=== PATIENT | female | born 1955 | race Caucasian/White ===

== ENCOUNTER → 2017-01-10 | Outpatient (CLI) | payer OTHER | LOC: FIMAGING 06:50 | PROVIDERS: ATTEND Internal Medicine | DX: M51.36 Other intervertebral disc degeneration, lumbar region (principal) ==

== ENCOUNTER → 2017-04-25 | Outpatient (CLI) | payer OTHER | LOC: CIMAGING 08:07 | PROVIDERS: ATTEND Internal Medicine | DX: Z12.31 Encounter for screening mammogram for malignant neoplasm of breast (principal) | CPT/HCPCS: G0202 ==

== ENCOUNTER → 2018-04-28 | Outpatient (CLI) | payer OTHER | LOC: CIMAGING 08:36 | PROVIDERS: ATTEND Internal Medicine | DX: Z12.31 Encounter for screening mammogram for malignant neoplasm of breast (principal) ==

== ENCOUNTER → 2018-08-03 | Outpatient (CLI) | payer OTHER | LOC: FIMAGING 16:12 | PROVIDERS: ATTEND Internal Medicine | DX: R05 Cough (principal) ==